=== PATIENT | male | born 1955 | race Caucasian/White ===

== ENCOUNTER 2018-10-22 08:03 | Emergency (ER) | payer OTHER ==
[~2018-10-22] VITALS: Ht 177.8 cm; Wt 88.0 kg
[2018-10-22 08:15] VITALS: BP_SYST 172
[2018-10-22] MEDS ORDERED: cefTRIAXone 1 GM VIAL IM ONE (08:30)
[2018-10-22] MEDS ORDERED: LIDOCAINE 1%, 20 ML MDV 20 ML ONE (08:53)
[2018-10-22 11:25] VITALS: BP_SYST 159
== END 2018-10-22 11:23 | disposition home or self-care (01) ==
LOC: SED 08:03
DX: S61.011A Laceration without foreign body of right thumb without damage to nail, initial encounter (principal); W23.0XXA Caught, crushed, jammed, or pinched between moving objects, initial encounter; Y93.89 Activity, other specified; Y92.89 Other specified places as the place of occurrence of the external cause; Y99.8 Other external cause status
CPT/HCPCS: 12002; 73140; 96372; 99283; J0696; J2001